=== PATIENT | female | born 1955 | race Caucasian/White ===

== ENCOUNTER 2018-07-15 19:37 | Emergency (ER) | payer MEDICARE, MEDICAID ==
[~2018-07-15] VITALS: Ht 170.2 cm; Wt 63.6 kg
[2018-07-15 19:49] VITALS: BP 104/65
[2018-07-15] MEDS ORDERED: COLCHICINE 0.6 MG TABLET PO ONE (20:30)
[2018-07-15] MEDS ORDERED: COLCHICINE 0.6 MG TABLET ONE (20:37)
--- NOTE | 2018-07-15 20:45 | NUR ---
[employer] APPLIED. PT MEDICATED PER EMAR. AWAITING WALKER FROM [place] FOR DC
--- NOTE | 2018-07-15 21:01 | NUR ---
DC EDUCATION PROVIDED, PT DEMONSTRATES UNDERSTANDING. PT AMBULATED STEADILY W/ WALKER TO DC WITH RN AND SO. SO TO TRANSPORT PT HOME
== END 2018-07-15 21:02 | disposition home or self-care (01) ==
LOC: ED 20:56
DX: M25.572 Pain in left ankle and joints of left foot (principal); F17.210 Nicotine dependence, cigarettes, uncomplicated
CPT/HCPCS: 99283

== ENCOUNTER 2018-07-22 11:13 | Emergency (ER) | payer MEDICARE, MEDICAID ==
[~2018-07-22] VITALS: Ht 172.7 cm; Wt 62.1 kg
[2018-07-22] MEDS ORDERED: ACID1TAB7 PO (11:50)
[2018-07-22] MEDS ORDERED: COLC0.6T37 PO (11:50)
[2018-07-22] MEDS ORDERED: OMEP-110 PO (11:50)
[2018-07-22] MEDS ORDERED: SODIUM CHLORIDE FLUSH 10ML SYR IVF ONE (12:30)
[2018-07-22 12:44] LABS: BASOPHILS # (AUTO) 0.04 x10^3/uL (0-0.1); BASOPHILS % (AUTO) 1 % (0-1); EOSINOPHILS # (AUTO) 0.04 x10^3/uL (0-0.4); EOSINOPHILS % (AUTO) 1 % (1-7); LYMPHOCYTES # (AUTO) 2.15 x10^3/uL (1-3.4); LYMPHOCYTES % (AUTO) 34 % (22-44); MD NO; MEAN CORPUSCULAR HEMOGLOBIN 35.1 pg (27.0-34.8); MEAN CORPUSCULAR HGB CONC 32.6 g/dL (32.4-35.8); MEAN CORPUSCULAR VOLUME 107.7 fL (80-100); MEAN PLATELET VOLUME 7.6 fL (7.4-10.4); MONOCYTES # (AUTO) 0.47 x10^3/uL (0.2-0.8); MONOCYTES % (AUTO) 8 % (2-9); NEUTROPHILS # (AUTO) 3.57 x10^3/uL (1.8-6.8); NEUTROPHILS % (AUTO) 57 % (42-75); PLATELET COUNT 361 x10^3/uL (130-400); RED BLOOD COUNT 3.78 x10^6/uL (3.82-5.3); RED CELL DISTRIBUTION WIDTH 12.9 % (9.6-15.2)
[2018-07-22 12:57] LABS: INTERNATIONAL NORMALIZED RATIO 0.97 (0.93-1.1); PROTHROMBIN TIME 10.2 Seconds (9.6-11.5)
[2018-07-22 13:00] LABS: ALANINE AMINOTRANSFERASE 24 U/L (12-78); ALBUMIN 3.5 g/dL (3.4-5.0); ANION GAP 4 mmol/L (5-15); CALCIUM 9.1 mg/dL (8.5-10.1); CHLORIDE 108 mmol/L (98-107); CREATININE 0.65 mg/dL (0.55-1.02)
[2018-07-22 13:05] LABS: ALKALINE PHOSPHATASE 153 U/L (45-117); BILIRUBIN,TOTAL 0.4 mg/dL (0.2-1.0); TOTAL PROTEIN 7.1 g/dL (6.4-8.2)
[2018-07-22 13:17] LABS: HCT (SEDRATE) 40.7 % (34.6-47.8)
[2018-07-22] MEDS ORDERED: OMNIPAQUE 350 MG/ML, 100ML BOTTLE ONE (13:47)
--- NOTE | 2018-07-22 14:22 | NUR ---
RECEIVED REPORT FROM ROLANDA PRINCE AND ASSUMED CARE. RIGHT LOWER EXTREMITY SWELLING NOTED. AWAITING DISPO
[2018-07-22 14:49] VITALS: BP 129/75
--- NOTE | 2018-07-22 14:51 | NUR ---
PT GIVEN DISCHARGE INSTRUCTIONS AND AMBULATED TO DISCHARGE , STEADY GAIT
== END 2018-07-22 14:53 | disposition home or self-care (01) ==
LOC: ED 11:57
DX: L03.115 Cellulitis of right lower limb (principal)
CPT/HCPCS: 36415; 74177; 80053; 83880; 84550; 85025; 85610; 85651; 85730; 86850; 86900; 93005; 93971; 99284; Q9967

== ENCOUNTER 2019-04-17 16:23 | Inpatient (IN) | payer MEDICARE, MEDICAID ==
[~2019-04-17] VITALS: Ht 170.2 cm; Wt 66.9 kg
[~2019-04-17 16:23] MED LIST: ACID1TAB7 PO; COLC0.6T37 PO; OMEP-110 PO
[2019-04-17] MEDS ORDERED: SODIUM CHLORIDE 0.9% 1,000ML IVBOLUS ONE (17:30)
[2019-04-17] MEDS ORDERED: SODIUM CHLORIDE FLUSH 10ML SYR IVF ONE (17:30)
[2019-04-17 18:27] LABS: BASOPHILS # (AUTO) 0.05 x10^3/uL (0-0.1); BASOPHILS % (AUTO) 0 % (0-1); EOSINOPHILS # (AUTO) 0.01 x10^3/uL (0-0.4); EOSINOPHILS % (AUTO) 0 % (1-7); LYMPHOCYTES % (AUTO) 9 % (22-44); MD NO; MEAN CORPUSCULAR HEMOGLOBIN 36.3 pg (27.0-34.8); MEAN CORPUSCULAR VOLUME 106.6 fL (80-100); MEAN PLATELET VOLUME 7.4 fL (7.4-10.4); MONOCYTES # (AUTO) 0.27 x10^3/uL (0.2-0.8); MONOCYTES % (AUTO) 2 % (2-9); NEUTROPHILS # (AUTO) 10.87 x10^3/uL (1.8-6.8); NEUTROPHILS % (AUTO) 88 % (42-75); PLATELET COUNT 298 x10^3/uL (130-400); RED BLOOD COUNT 3.95 x10^6/uL (3.82-5.3); RED CELL DISTRIBUTION WIDTH 13.9 % (9.6-15.2)
[2019-04-17 19:24] LABS: CHLORIDE 99 mmol/L (98-107)
[2019-04-17 19:29] LABS: ALANINE AMINOTRANSFERASE 38 U/L (12-78); ALBUMIN 3.8 g/dL (3.4-5.0); ANION GAP 10 mmol/L (5-15); CALCIUM 9.3 mg/dL (8.5-10.1)
[2019-04-17 19:31] LABS: ALKALINE PHOSPHATASE 180 U/L (45-117); BILIRUBIN,TOTAL 0.7 mg/dL (0.2-1.0); TOTAL PROTEIN 8.1 g/dL (6.4-8.2)
--- NOTE | 2019-04-17 19:33 | NUR ---
PT TO TRIAGE AND VS RECHECKED
--- NOTE | 2019-04-17 20:09 | NUR ---
PT CALLED FROM [facility] FOR ROOM AT THIS TIME, AMBULATE STEADY GAIT TO ROOM
--- NOTE | 2019-04-17 20:48 | NUR ---
XRAY AT BEDSIDE. MEDICATIONS OBTAINED, IV TO BE STARTED.
[2019-04-17] MEDS ORDERED: ONDANSETRON 2MG/ML, 2ML ONE (20:50)
[2019-04-17] MEDS ORDERED: MORPHINE SULFATE 4 MG/ML, 1ML ONE (20:50)
[2019-04-17] MEDS ORDERED: WELLBUTRIN PO (20:53)
[2019-04-17] MEDS ORDERED: GABA300C10 PO (20:53)
[2019-04-17] MEDS ORDERED: ACET325T14 PO (20:53)
[2019-04-17] MEDS ORDERED: AMPICILLIN/SULBACTAM 3 GM in SODIUM CHLORIDE 0.9% 100 ML IV ONE (21:00)
[2019-04-17] MEDS ORDERED: MORPHINE SULFATE 4 MG/ML, 1ML IVPush PRN (21:00)
[2019-04-17] MEDS ORDERED: ONDANSETRON 2MG/ML, 2ML IVPush ONE (21:00)
--- NOTE | 2019-04-17 21:30 | NUR ---
PT RESTING AFTER MEDICATIONS GIVEN. WARM BLANKETS, SOCKS AND WATER GIVEN. PT REMAINS STABLE. WILL CONTINUE TO MONITOR.
--- NOTE | 2019-04-17 22:30 | NUR ---
PT LYING IN BED, AWARE OF BEING ADMITTING TO FLOOR. WILL CONTINUE TO MONITOR.
[2019-04-17] MEDS ORDERED: SODIUM CHLORIDE FLUSH 10ML SYR IVF PRN (23:00)
--- NOTE | 2019-04-17 23:00 | NUR ---
REPORT TO DHARMESH PRINCE.
--- NOTE | 2019-04-17 23:04 | NUR ---
RECEIVED REPORT FROM GABY PRINCE.
[2019-04-17] MEDS ORDERED: POLYETHYLENE GLYCOL 17 GM PACKET PO PRN (23:30)
[2019-04-17] MEDS ORDERED: ONDANSETRON ODT 4 MG PO PRN (23:30)
[2019-04-17] MEDS: HEPARIN 5,000 UNITS/ML, 1ML SQ SCH (23:30)
[2019-04-17] MEDS ORDERED: BISACODYL 10 MG SUPP PR PRN (23:30)
[2019-04-17] MEDS ORDERED: KETOROLAC 30 MG/1 ML IVPush PRN (23:30)
--- NOTE | 2019-04-17 23:32 | NUR ---
PT RESTING COMFORTABLY ON GURNEY. IDRIS. FRIEND AT BEDSIDE.
--- NOTE | 2019-04-17 23:42 | NUR ---
REPORT GIVEN TO SOFIA PRINCE
[2019-04-18] VITALS: BP 104/64
[2019-04-18] MEDS: NICOTINE 7 MG/24 HR PATCH.TD24 TD SCH ×2 (00:58→23:54)
[2019-04-18] MEDS: SODIUM CHLORIDE 0.9% 1,000 ML IV SCH ×4 (00:59→23:55)
[2019-04-18] MEDS: OXYcodone/APAP 5/325MG TABLET PO PRN ×2 (03:01→16:23)
[2019-04-18] MEDS: AMPICILLIN/SULBACTAM 3 GM in SODIUM CHLORIDE 0.9% 100 ML IV SCH ×4 (03:01→20:42)
[2019-04-18] MEDS: COLCHICINE 0.6 MG CAPSULE PO SCH ×2 (05:15→10:09)
[2019-04-18 06:49] VITALS: BP 100/66
[2019-04-18 07:11] LABS: MEAN CORPUSCULAR HGB CONC 34.7 g/dL (32.4-35.8); MEAN CORPUSCULAR VOLUME 106.8 fL (80-100); MEAN PLATELET VOLUME 7.3 fL (7.4-10.4); PLATELET COUNT 263 x10^3/uL (130-400); RED BLOOD COUNT 3.24 x10^6/uL (3.82-5.3); RED CELL DISTRIBUTION WIDTH 13.7 % (9.6-15.2)
[2019-04-18 07:16] LABS: ANION GAP 6 mmol/L (5-15); CALCIUM 8.3 mg/dL (8.5-10.1); CHLORIDE 106 mmol/L (98-107); CREATININE 0.39 mg/dL (0.55-1.02)
[2019-04-18] MEDS: HEPARIN 5,000 UNITS/ML, 1ML SQ SCH ×3 (07:30→23:30)
[2019-04-18 07:39] LABS: BASOPHILS # (AUTO) 0.02 x10^3/uL (0-0.1); BASOPHILS % (AUTO) 0 % (0-1); EOSINOPHILS # (AUTO) 0.02 x10^3/uL (0-0.4); EOSINOPHILS % (AUTO) 0 % (1-7); LYMPHOCYTES # (AUTO) 1.75 x10^3/uL (1-3.4); LYMPHOCYTES % (AUTO) 18 % (22-44); MD SCAN; MONOCYTES % (AUTO) 6 % (2-9); NEUTROPHILS # (AUTO) 7.42 x10^3/uL (1.8-6.8); NEUTROPHILS % (AUTO) 76 % (42-75)
[2019-04-18] MEDS: ACETAMINOPHEN 325 MG TABLET PO PRN (08:59)
[2019-04-18] MEDS: LACTOBACILLUS CHEW TABLET PO SCH (08:59)
[2019-04-18] MEDS: GABAPENTIN 300 MG CAPSULE PO SCH ×2 (08:59→20:41)
[2019-04-18] MEDS: OMEPRAZOLE 20 MG CAPSULE.DR PO SCH (08:59)
[2019-04-18] MEDS: SENNA/DOCUSATE TABLET PO SCH (09:00)
[2019-04-18 14:05] VITALS: BP 99/60
[2019-04-18 19:12] VITALS: BP 105/62
[2019-04-19 00:42] VITALS: BP 115/72
[2019-04-19] MEDS: AMPICILLIN/SULBACTAM 3 GM in SODIUM CHLORIDE 0.9% 100 ML IV SCH ×4 (03:26→20:47)
[2019-04-19 06:08] LABS: BASOPHILS # (AUTO) 0.07 x10^3/uL (0-0.1); BASOPHILS % (AUTO) 1 % (0-1); EOSINOPHILS # (AUTO) 0.03 x10^3/uL (0-0.4); EOSINOPHILS % (AUTO) 0 % (1-7); LYMPHOCYTES # (AUTO) 1.78 x10^3/uL (1-3.4); LYMPHOCYTES % (AUTO) 22 % (22-44); MD NO; MEAN CORPUSCULAR HEMOGLOBIN 36.3 pg (27.0-34.8); MEAN CORPUSCULAR HGB CONC 33.8 g/dL (32.4-35.8); MEAN CORPUSCULAR VOLUME 107.3 fL (80-100); MEAN PLATELET VOLUME 7.3 fL (7.4-10.4); MONOCYTES % (AUTO) 5 % (2-9); NEUTROPHILS # (AUTO) 5.79 x10^3/uL (1.8-6.8); NEUTROPHILS % (AUTO) 72 % (42-75); PLATELET COUNT 255 x10^3/uL (130-400); RED BLOOD COUNT 3.19 x10^6/uL (3.82-5.3); RED CELL DISTRIBUTION WIDTH 13.8 % (9.6-15.2)
[2019-04-19 06:49] VITALS: BP 108/58
[2019-04-19] MEDS: HEPARIN 5,000 UNITS/ML, 1ML SQ SCH ×3 (07:10→23:30)
[2019-04-19] MEDS: SODIUM CHLORIDE 0.9% 1,000 ML IV SCH ×3 (08:09→23:57)
[2019-04-19] MEDS: SENNA/DOCUSATE TABLET PO SCH (08:10)
[2019-04-19] MEDS: LACTOBACILLUS CHEW TABLET PO SCH (08:10)
[2019-04-19] MEDS: OMEPRAZOLE 20 MG CAPSULE.DR PO SCH (08:10)
[2019-04-19] MEDS: GABAPENTIN 300 MG CAPSULE PO SCH ×2 (08:10→20:47)
[2019-04-19 14:43] VITALS: BP 102/64
[2019-04-19 19:14] VITALS: BP 117/73
[2019-04-19] MEDS: ACETAMINOPHEN 325 MG TABLET PO PRN (20:52)
[2019-04-19] MEDS: NICOTINE 7 MG/24 HR PATCH.TD24 TD SCH (23:57)
[2019-04-20 00:40] VITALS: BP 99/64
[2019-04-20] MEDS: AMPICILLIN/SULBACTAM 3 GM in SODIUM CHLORIDE 0.9% 100 ML IV SCH ×2 (04:15→08:30)
[2019-04-20] MEDS: HEPARIN 5,000 UNITS/ML, 1ML SQ SCH (07:09)
[2019-04-20 07:46] VITALS: BP 120/74
[2019-04-20] MEDS: LACTOBACILLUS CHEW TABLET PO SCH (08:29)
[2019-04-20] MEDS: SENNA/DOCUSATE TABLET PO SCH (08:29)
[2019-04-20] MEDS: SODIUM CHLORIDE 0.9% 1,000 ML IV SCH (08:30)
[2019-04-20] MEDS: OMEPRAZOLE 20 MG CAPSULE.DR PO SCH (08:30)
[2019-04-20] MEDS: GABAPENTIN 300 MG CAPSULE PO SCH (08:30)
[2019-04-20] MEDS: ACETAMINOPHEN 325 MG TABLET PO PRN (08:54)
[2019-04-20] MEDS ORDERED: AMOX1TAB64 PO (12:04)
== END 2019-04-20 13:47 | disposition home or self-care (01) | DRG 872 ==
LOC: ED 23:54 → EDIP 23:59 → 3N 04-18 00:02 → DCLOUNGE 04-20 13:38
PROVIDERS: ADMIT Family Medicine; ATTEND Hospitalist
DX: A41.9 Sepsis, unspecified organism (principal); L03.114 Cellulitis of left upper limb; E87.1 Hypo-osmolality and hyponatremia; W55.01XA Bitten by cat, initial encounter; D53.9 Nutritional anemia, unspecified; D75.89 Other specified diseases of blood and blood-forming organs; F17.210 Nicotine dependence, cigarettes, uncomplicated; G62.9 Polyneuropathy, unspecified; I10 Essential (primary) hypertension; K21.9 Gastro-esophageal reflux disease without esophagitis; Z88.2 Allergy status to sulfonamides
CPT/HCPCS: 36415; 80048; 80053; 82607; 83605; 84145; 85025; 87040; 99285; G0378; J0295; J2405; J2270; J7030

== ENCOUNTER 2019-07-26 11:12 | Emergency (ER) | payer MEDICARE, MEDICAID ==
[~2019-07-26] VITALS: Ht 170.2 cm; Wt 60.0 kg
[~2019-07-26 11:12] MED LIST changes: +ACET325T14 PO; +AMOX1TAB64 PO; +GABA300C10 PO; +WELLBUTRIN PO
--- NOTE | 2019-07-26 11:29 | NUR ---
PT STATES LT KNEE PAIN AFTER GLF LAST NIGHT, STATES PAIN WORSE TODAY. ER PA-C AT BEDSIDE FOR ASSESSMENT.
[2019-07-26] MEDS ORDERED: ONDANSETRON ODT 8 MG PO ONE (11:30)
[2019-07-26] MEDS ORDERED: PLEASE ENTER HEIGHT AND WEIGHT MC SCH (11:30)
[2019-07-26] MEDS ORDERED: HYDROcodone/APAP 5/325 TABLET PO ONE (11:30)
[2019-07-26] MEDS ORDERED: ONDANSETRON ODT 8 MG ONE (11:36)
[2019-07-26] MEDS ORDERED: HYDROcodone/APAP 5/325 TABLET ONE (11:37)
--- NOTE | 2019-07-26 11:44 | NUR ---
PT TO XRAY, WILL MEDICATED WHEN RETURNS.
--- NOTE | 2019-07-26 12:14 | NUR ---
PT OK FOR D/C PER ERMD. HAS ALL OWN BELONGINGS UPON D/C, VERBALIZES D/C INSTRUCTIONS.
[2019-07-26 12:16] VITALS: BP 125/78
== END 2019-07-26 12:47 | disposition home or self-care (01) ==
LOC: ED 12:00
DX: S83.92XA Sprain of unspecified site of left knee, initial encounter (principal); I10 Essential (primary) hypertension; W18.40XA Slipping, tripping and stumbling without falling, unspecified, initial encounter; Y93.89 Activity, other specified; Y92.009 Unspecified place in unspecified non-institutional (private) residence as the place of occurrence of the external cause; Y99.8 Other external cause status
CPT/HCPCS: 29505; 73564; 99283; Q0162

== ENCOUNTER 2019-10-31 09:55 | Emergency (ER) | payer MEDICARE, MEDICAID ==
[~2019-10-31] VITALS: Ht 170.2 cm; Wt 58.8 kg
[~2019-10-31 09:55] MED LIST changes: +HYDR-3590 PO; +LEVO50TA5 PO; +OXYC-307 PO
--- NOTE | 2019-10-31 10:24 | NUR ---
pt to ed from home. 2 wks ago L knee sx, infection, has picc in [facility] and on daily abx tx for [address] 3 [facility], since at home knee getting worse, more swollen. 2 lap sites w sutures, no leaking noted. redness, swollen. +DP. bruising L lower leg. denies fevers/incr pain. vss. call howard, at bedside. as
--- NOTE | 2019-10-31 10:56 | NUR ---
ISHAN Silva in room for eval. blood from picc, blood cultures by lab. kristine howard. shuns. as
[2019-10-31 11:20] LABS: MEAN CORPUSCULAR HEMOGLOBIN 36.4 pg (27.0-34.8); MEAN CORPUSCULAR VOLUME 110.2 fL (80-100); MEAN PLATELET VOLUME 7.1 fL (7.4-10.4); PLATELET COUNT 419 x10^3/uL (130-400); RED BLOOD COUNT 3.18 x10^6/uL (3.82-5.3); RED CELL DISTRIBUTION WIDTH 13.7 % (9.6-15.2)
[2019-10-31 11:35] LABS: ALBUMIN 2.5 g/dL (3.4-5.0); ANION GAP 9 mmol/L (5-15); CALCIUM 9.4 mg/dL (8.5-10.1); CHLORIDE 99 mmol/L (98-107)
[2019-10-31 11:38] LABS: ALANINE AMINOTRANSFERASE 26 U/L (12-78); ALKALINE PHOSPHATASE 180 U/L (45-117); BASOPHILS # (AUTO) 0.03 x10^3/uL (0-0.1); BASOPHILS % (AUTO) 0 % (0-1); BILIRUBIN,TOTAL 0.4 mg/dL (0.2-1.0); CREATININE 0.43 mg/dL (0.55-1.02); EOSINOPHILS % (AUTO) 0 % (1-7); LYMPHOCYTES # (AUTO) 1.14 x10^3/uL (1-3.4); LYMPHOCYTES % (AUTO) 12 % (22-44); MD SCAN; MONOCYTES # (AUTO) 0.72 x10^3/uL (0.2-0.8); MONOCYTES % (AUTO) 8 % (2-9); NEUTROPHILS # (AUTO) 7.43 x10^3/uL (1.8-6.8); NEUTROPHILS % (AUTO) 80 % (42-75); TOTAL PROTEIN 7.2 g/dL (6.4-8.2)
--- NOTE | 2019-10-31 11:40 | NUR ---
tbadm. us res pending. aware of poc. as
--- NOTE | 2019-10-31 13:03 | NUR ---
walked to br 1 person assist. leobardo saw pt most likely admit vss pt npo now, aware. as
--- NOTE | 2019-10-31 13:45 | NUR ---
Report given to Jennifer
--- NOTE | 2019-10-31 13:49 | NUR ---
Dr. Mendoza and Surgeon at bedside discussing POC
[2019-10-31 13:50] VITALS: BP 96/62
--- NOTE | 2019-10-31 14:18 | NUR ---
dr caro was in room and decided to dc pt. as
--- NOTE | 2019-10-31 14:49 | NUR ---
pt awaiting dc papers. as
== END 2019-10-31 14:54 | disposition left against medical advice (07) ==
LOC: ED 11:27 → UNDOADMIN 13:11 → EDIP 13:11 → ED 14:54
DX: M00.862 Arthritis due to other bacteria, left knee (principal); I10 Essential (primary) hypertension; Z88.2 Allergy status to sulfonamides
CPT/HCPCS: 36415; 80053; 84145; 85025; 87040; 99285

== ENCOUNTER 2019-10-31 17:09 | Emergency (ER) | payer MEDICARE, MEDICAID ==
[~2019-10-31] VITALS: Ht 170.2 cm; Wt 59.0 kg
[2019-10-31 18:30] VITALS: BP 103/69
--- NOTE | 2019-10-31 18:30 | NUR ---
PT BACK FROM IR, PICC COMPLETE
--- NOTE | 2019-10-31 18:44 | NUR ---
Patient/Caregiver given discharge instructions and they have confirmed that they understand the instructions. Patient ambulatory with steady gait.
--- NOTE | 2019-10-31 19:07 | NUR ---
Report received from NIKI Sorto. This RN to assume care. Patient up for discharge. Instructions given. All questions and concerns addressed. Patient wheeled out in a wheelchair. Belongings with patient.
== END 2019-10-31 19:08 | disposition home or self-care (01) ==
LOC: ED 18:05
DX: Z45.2 Encounter for adjustment and management of vascular access device (principal); I10 Essential (primary) hypertension; F17.200 Nicotine dependence, unspecified, uncomplicated
CPT/HCPCS: 36584; 77001; 99285; C1751

== ENCOUNTER 2019-12-29 09:04 | Emergency (ER) | payer MEDICARE, MEDICAID ==
[~2019-12-29] VITALS: Ht 170.2 cm; Wt 58.4 kg
--- NOTE | 2019-12-29 09:36 | NUR ---
THIS IS A 64 YEAR OLD FEMALE WHO C/O OF "MY LEFT KNEE IS FLARING UP. FELL COUPLE MONTHS AGO, SPRAINS, GOT MRI, I HAD 2 MENISCUS TEARS IN MY KNEE, HAD OPERATION ON THEM, THEN GOT BONE INFECTION, HIT MY KNEE AND IT WAS DRAINING. SWELLING WORSE OVER LAST MONTH, HAVE BEEN ON ANTIBIOTICS BOTH PILLS AND IV INFUSIONS. IT IS RED AND WARM, STILL HAS FLUID ON IT. ALSO MY ACID REFLUX HAS FLARED UP." DENIES CP, SOB. SPOUSE AT BS. PT TO X RAY VIA DOMINIK
--- NOTE | 2019-12-29 10:08 | NUR ---
PT BACK FROM XRAY, RESTING COMFORTABLY
[2019-12-29 10:14] LABS: BASOPHILS % (AUTO) 1 % (0-1); EOSINOPHILS % (AUTO) 1 % (1-7); LYMPHOCYTES % (AUTO) 25 % (22-44); MEAN CORPUSCULAR HEMOGLOBIN 35.1 pg (27.0-34.8); MEAN CORPUSCULAR HGB CONC 33.4 g/dL (32.4-35.8); MEAN PLATELET VOLUME 7.3 fL (7.4-10.4); MONOCYTES % (AUTO) 7 % (2-9); NEUTROPHILS % (AUTO) 67 % (42-75); PLATELET COUNT 280 x10^3/uL (130-400); RED BLOOD COUNT 3.62 x10^6/uL (3.82-5.3); RED CELL DISTRIBUTION WIDTH 14.5 % (9.6-15.2)
[2019-12-29 10:15] LABS: MD NO
[2019-12-29 10:23] LABS: ALANINE AMINOTRANSFERASE 25 U/L (12-78); ALBUMIN 3.4 g/dL (3.4-5.0); ANION GAP 3 mmol/L (5-15); C-REACTIVE PROTEIN, QUANT 0.03 mg/dL (0.02-0.49); CALCIUM 8.8 mg/dL (8.5-10.1); CHLORIDE 107 mmol/L (98-107); CREATININE 0.47 mg/dL (0.55-1.02)
[2019-12-29 10:24] LABS: HCT (SEDRATE) 37.9 % (34.6-47.8)
[2019-12-29 10:26] LABS: ALKALINE PHOSPHATASE 131 U/L (45-117); BILIRUBIN,TOTAL 0.7 mg/dL (0.2-1.0)
--- NOTE | 2019-12-29 11:17 | NUR ---
ASSISTED PATIENT TO THE RESTROOM, HOOKED BACK UP TO CONTINUOUS SPO2 AND BP. RESTING COMFORTABLY, VERBALIZED NO FURTHER NEEDS AT THIS TIME.
[2019-12-29] MEDS ORDERED: LIDOCAINE 1%, 10ML INFIL ONE (11:30)
[2019-12-29] MEDS ORDERED: LIDOCAINE-MPF 1%, 5ML ONE (11:41)
--- NOTE | 2019-12-29 11:44 | NUR ---
SET UP FOR ARTHROCENTESIS
[2019-12-29] MEDS ORDERED: FLUO40CA2 PO (13:58)
[2019-12-29] MEDS ORDERED: HALO10TA PO (13:59)
[2019-12-29] MEDS ORDERED: POLY8.5P MT (13:59)
[2019-12-29 14:10] VITALS: BP 120/60
--- NOTE | 2019-12-29 14:10 | NUR ---
PT AWAITING LAB, EXPLAINED PLAN OF CARE, WATER GIVEN. PT UP TO BATHROOM, VERBALIZED NO OTHER NEEDS AT THIS TIME.
--- NOTE | 2019-12-29 14:46 | NUR ---
PATIENT LEFT WITHOUT DISCHARGE PAPERWORK Addendum: 12/29/19 at 1449 by [email or web address] PATIENT WAS UP FOR DISCHARGE BUT ELOPED BEFORE DISCHARGE PAPERWORK WAS GIVEN
== END 2019-12-29 14:50 | disposition left against medical advice (07) ==
LOC: ED 09:54
DX: M25.462 Effusion, left knee (principal); I10 Essential (primary) hypertension; F17.210 Nicotine dependence, cigarettes, uncomplicated
CPT/HCPCS: 20610; 36415; 80053; 82945; 84157; 84560; 85025; 85651; 85810; 86140; 87070; 87205; 89050; 89060; 99284; 99406

== ENCOUNTER → 2020-01-16 | Outpatient (CLI) | payer MEDICARE, MEDICAID ==
[~2020-01-16] MED LIST changes: +FLUO40CA2 PO; +HALO10TA PO; +POLY8.5P MT
== END | disposition home or self-care (01) ==
LOC: CFH 10:36
PROVIDERS: ATTEND Family Medicine
DX: Z12.2 Encounter for screening for malignant neoplasm of respiratory organs (principal); Z87.891 Personal history of nicotine dependence
CPT/HCPCS: G0297

== ENCOUNTER → 2020-02-11 | Outpatient (CLI) | payer MEDICARE, MEDICAID ==
[2020-02-11 12:25] LABS: ALANINE AMINOTRANSFERASE 51 U/L (12-78); ANION GAP 7 mmol/L (5-15); CHLORIDE 100 mmol/L (98-107); CREATININE 0.52 mg/dL (0.55-1.02)
[2020-02-11 12:27] LABS: ALKALINE PHOSPHATASE 153 U/L (45-117); BILIRUBIN,TOTAL 0.7 mg/dL (0.2-1.0); TOTAL PROTEIN 7.9 g/dL (6.4-8.2)
== END | disposition home or self-care (01) ==
LOC: LAB 11:43
PROVIDERS: ATTEND Internal Medicine
DX: M81.0 Age-related osteoporosis without current pathological fracture (principal)
CPT/HCPCS: 36415; 80053

== ENCOUNTER 2020-05-21 11:49 | Day surgery (SDC) | payer MEDICARE, MEDICAID ==
[2020-05-18 15:50] LABS: BASOPHILS % (AUTO) 1 % (0-1); EOSINOPHILS % (AUTO) 1 % (1-7); HCT (SEDRATE) 40.5 % (34.6-47.8); LYMPHOCYTES % (AUTO) 27 % (22-44); MEAN CORPUSCULAR HEMOGLOBIN 37.5 pg (27.0-34.8); MEAN PLATELET VOLUME 6.9 fL (7.4-10.4); MONOCYTES % (AUTO) 8 % (2-9); NEUTROPHILS % (AUTO) 64 % (42-75); PLATELET COUNT 285 x10^3/uL (130-400); RED BLOOD COUNT 3.72 x10^6/uL (3.82-5.3); RED CELL DISTRIBUTION WIDTH 13.4 % (9.6-15.2)
[2020-05-18 15:58] LABS: MD MORPH REVIEW ONLY
[2020-05-18 16:00] LABS: ANION GAP 4 mmol/L (5-15); CALCIUM 9.3 mg/dL (8.5-10.1); CHLORIDE 104 mmol/L (98-107)
[2020-05-18 16:10] LABS: INTERNATIONAL NORMALIZED RATIO 0.94 (0.93-1.1); PROTHROMBIN TIME 10.1 Seconds (9.6-11.5)
[2020-05-18 17:35] LABS: <PLATELET ESTIMATE> ADEQUATE; <PLT MORPHOLOGY> NORMAL PLT MORPH
[~2020-05-21] VITALS: Ht 170.2 cm; Wt 59.0 kg
[~2020-05-21 11:49] MED LIST changes: +ASCO100018 PO; +BIOT1TAB12 PO; +BUPR150T28 PO; +CALC1CAP8 PO; +CHOL10003 PO; +CITRUCEL PO; +COLLAGEN PEPTIDES PO; +CYAN50008 PO; +GABA-827 PO; +MAGN250T8 PO; +NAPR-685 PO; -OXYC-307 PO; +OXYC-380 PO; +OXYC1TAB18 PO; +VITA400T6 PO
[2020-05-21 12:27] VITALS: BP 112/72
[2020-05-21] MEDS ORDERED: VANCOMYCIN PMX 1GM/200ML 200 ML IV ONE (12:30)
[2020-05-21] MEDS ORDERED: LACTATED RINGERS 1,000 ML IV SCH (12:30)
[2020-05-21] MEDS ORDERED: CHLORHEXIDINE 15 ML UDC PO ONE (13:00)
[2020-05-21] MEDS ORDERED: MIDAZOLAM 1 MG/ML, 2ML ONE (13:00)
[2020-05-21] MEDS ORDERED: FENTANYL PF 250 MCG/5ML ONE (13:00)
[2020-05-21] MEDS ORDERED: DEXAMETHASONE 4 MG/ML, 1ML ONE (13:02)
[2020-05-21] MEDS ORDERED: PROPOFOL 10 MG/ML, 20ML ONE (13:02)
[2020-05-21] MEDS ORDERED: CEFAZOLIN 1,000 MG ONE (13:02)
[2020-05-21] MEDS ORDERED: NEOSTIGMINE 1 MG/ML, 10ML ONE (13:02)
[2020-05-21] MEDS ORDERED: GLYCOPYRROLATE 0.2MG/1ML, 5ML ONE (13:02)
[2020-05-21] MEDS ORDERED: ONDANSETRON 2MG/ML, 2ML ONE (13:02)
[2020-05-21] MEDS ORDERED: ROCURONIUM 10MG/ML,5ML ONE (13:02)
[2020-05-21] MEDS ORDERED: PROPOFOL 100 ML ONE (14:12)
[2020-05-21] MEDS ORDERED: HYDROmorphone 1 MG/ML, 1ML INJ IVPush PRN (14:30)
[2020-05-21] MEDS ORDERED: HALOPERIDOL 5 MG/ML IV PRN (14:30)
[2020-05-21] MEDS ORDERED: morphine SULFATE 10 MG/ML, 1ML IVPush PRN ×2 (14:30→15:00)
[2020-05-21] MEDS ORDERED: PROMETHAZINE 25 MG/ML, 1ML IVPush PRN (14:30)
[2020-05-21] MEDS ORDERED: MEPERIDINE/PF 25MG/0.5ML IVPush PRN (14:30)
[2020-05-21] MEDS ORDERED: OXYcodone 5 MG/5 ML ORAL.SOL UDC PO PRN ×2 (14:30→15:00)
[2020-05-21] MEDS ORDERED: FENTANYL PF 100 MCG/2ML IV PRN (14:30)
[2020-05-21] MEDS ORDERED: ACETAMINOPHEN 325 MG TABLET PO PRN ×2 (14:30→15:00)
[2020-05-21] MEDS ORDERED: KETOROLAC 30 MG/1 ML IVPush SCH ×2 (15:00)
[2020-05-21] MEDS ORDERED: PROMETHAZINE 25 MG/ML, 1ML IM PRN (15:00)
[2020-05-21] MEDS ORDERED: ONDANSETRON 2MG/ML, 2ML IVPush PRN (15:00)
[2020-05-21] MEDS ORDERED: HYDROmorphone 1 MG/ML, 1ML INJ IM PRN (15:00)
[2020-05-21] MEDS ORDERED: FENTANYL PF 100 MCG/2ML ONE (15:16)
[2020-05-21] MEDS ORDERED: EPINEPHRINE 1 MG/ML, 1ML ONE (15:29)
[2020-05-21] MEDS ORDERED: BUPIVACAINE/PF 0.5% ONE (15:29)
== END 2020-05-21 17:15 | disposition home or self-care (01) ==
LOC: OR 11:49 → OUT 17:15
PROVIDERS: ATTEND Orthopaedic Surgery Orthopaedic Surgery of the Spine
DX: M46.1 Sacroiliitis, not elsewhere classified (principal); E03.9 Hypothyroidism, unspecified; K21.9 Gastro-esophageal reflux disease without esophagitis; Z20.822 Contact with and (suspected) exposure to COVID-19; Z79.01 Long term (current) use of anticoagulants; Z79.890 Hormone replacement therapy; Z79.891 Long term (current) use of opiate analgesic; Z79.899 Other long term (current) drug therapy; Z88.2 Allergy status to sulfonamides
CPT/HCPCS: 27279; 36415; 71046; 72202; 80048; 83036; 85025; 85610; 85651; 85730; 93005; 95938; 95941; C1713; C1762; J0171; J0690; J1100; J2250; J2405; J2704; J2710; J3010; J3370; J7120; U0003

== ENCOUNTER 2020-07-16 15:02 | Emergency (ER) | payer MEDICAID, MEDICARE ==
[~2020-07-16] VITALS: Ht 170.2 cm; Wt 60.3 kg
[~2020-07-16 15:02] MED LIST changes: -CYAN50008 PO; +CYAN50009 PO
[2020-07-16 15:09] VITALS: BP 98/68
--- NOTE | 2020-07-16 15:51 | NUR ---
BOBBIN SORTER: PT TO ROOM FROM LOBBY
== END 2020-07-16 16:34 | disposition home or self-care (01) ==
LOC: ED 16:25
DX: S40.012A Contusion of left shoulder, initial encounter (principal); S43.402A Unspecified sprain of left shoulder joint, initial encounter; I10 Essential (primary) hypertension; Z86.39 Personal history of other endocrine, nutritional and metabolic disease; W18.30XA Fall on same level, unspecified, initial encounter; Y93.89 Activity, other specified; Y92.009 Unspecified place in unspecified non-institutional (private) residence as the place of occurrence of the external cause; Y99.8 Other external cause status
CPT/HCPCS: 99283

== ENCOUNTER 2020-11-02 11:25 | Outpatient (CLI) | payer MEDICARE, MEDICAID ==
[~2020-11-02 11:25] MED LIST changes: -OXYC-380 PO; +OXYC-501 PO
[2020-11-02 11:53] LABS: ALBUMIN 3.5 g/dL (3.4-5.0); ANION GAP 7 mmol/L (5-15); CHLORIDE 101 mmol/L (98-107)
[2020-11-02 11:58] LABS: ALANINE AMINOTRANSFERASE 36 U/L (12-78); ALKALINE PHOSPHATASE 136 U/L (45-117); BILIRUBIN,TOTAL 0.5 mg/dL (0.2-1.0); CREATININE 0.49 mg/dL (0.55-1.02); TOTAL PROTEIN 7.4 g/dL (6.4-8.2)
== END 2020-11-02 23:59 | disposition home or self-care (01) ==
LOC: LAB 11:25
PROVIDERS: ATTEND Internal Medicine
DX: M81.0 Age-related osteoporosis without current pathological fracture (principal)
CPT/HCPCS: 36415; 80053